=== PATIENT | male | born 1960 | race Caucasian/White ===

== ENCOUNTER 2023-08-17 09:29 | Inpatient (IN) | payer MEDICAID ==
[~2023-08-17] VITALS: Ht 170.2 cm; Wt 69.5 kg
[2023-08-17] VITALS (13 sets, daily range): BP systolic 91–131; BP diastolic 57–79; TEMP 97.8–98.8; O2SAT 93–100
[2023-08-17 10:29] LABS: CALCIUM, SERUM 9.2 mg/dL (8.5-10.1); CARBON DIOXIDE 32 mmol/L (21-32); CHLORIDE 99 mmol/L (98-107); CREATININE 1.7 mg/dL (0.6-1.3); GLUCOSE 127 mg/dL (74-106); POTASSIUM 5.9 mmol/L (3.5-5.1); SODIUM SERUM 135 mmol/L (136-145); UREA NITROGEN, BLOOD 57 mg/dL (7-18)
[2023-08-17 10:42] LABS: ALANINE AMINOTRANSFERASE 104 U/L (12-78); ALBUMIN 2.6 g/dL (3.4-5.0); ALKALINE PHOSPHATASE 162 U/L (46-116); ASPARTATE AMINOTRANSFERASE 127 U/L (15-37); BILIRUBIN,DIRECT 0.6 mg/dL (0.0-0.2); BILIRUBIN,TOTAL 0.8 mg/dL (0.2-1.0); INR 1.13 (0.91-1.10); NT-PRO BNP > 25000 pg/mL (0-125); PARTIAL THROMBOPLASTIN TIME 32.6 SEC (24.3-34.3); PROTHROMBIN TIME 11.9 SECS (9.2-11.1); TOTAL PROTEIN, SERUM 6.8 g/dL (6.4-8.2)
[2023-08-17] MEDS ORDERED: ALLA266C2 TP (10:43)
[2023-08-17] MEDS ORDERED: MULT-447 PO (10:43)
[2023-08-17] MEDS ORDERED: PANT40TA2 PO (10:43)
[2023-08-17] MEDS ORDERED: NUTR1PAC14 PO (10:43)
[2023-08-17] MEDS ORDERED: ACET-868 PO ×2 (10:43)
[2023-08-17] MEDS ORDERED: DOCU-141 PO (10:43)
[2023-08-17] MEDS ORDERED: CRAN425C6 PO (10:43)
[2023-08-17] MEDS ORDERED: MAGN400O6 PO (10:43)
[2023-08-17] MEDS ORDERED: ALBU2.5V38 IH (10:43)
[2023-08-17] MEDS ORDERED: ASCO-352 PO (10:43)
[2023-08-17] MEDS ORDERED: ZINC50TA69 PO (10:43)
[2023-08-17] MEDS ORDERED: ENOX40DI SQ (10:43)
[2023-08-17] MEDS ORDERED: IPRA12.9 IH (10:43)
[2023-08-17] MEDS ORDERED: ASPI-1169 PO (10:43)
[2023-08-17] MEDS ORDERED: ONDA4TAB5 PO (10:43)
[2023-08-17] MEDS ORDERED: POVI3780 TP (10:43)
[2023-08-17] MEDS ORDERED: AMIN30LI2 PO (10:43)
[2023-08-17] MEDS ORDERED: [UNRECOGNIZED DRUG - SUPPLY] TD (10:43)
[2023-08-17 10:50] LABS: LACTIC ACID 2.9 mmol/L (0.4-2.0)
[2023-08-17 10:59] LABS: ABG BASE EXCESS 2.2 mmol/L; ABG OXYGEN SATURATION 97.6 % (92.0-98.5); ABG PCO2 65.9 mmHg (35.0-45.0); ABG PH 7.282 (7.350-7.450); ABG PO2 105.2 mmHg (75.0-100.0); ABG TOTAL HEMOGLOBIN 12.1 G/dL (13.5-18.0); COHb 0.2 % (0.5-1.5); MetHb 0.3 % (0.0-1.5); O2Hb 97.1 % (94.0-97.0); SITE, ABG Right Radial
[2023-08-17] MEDS ORDERED: FUROSEMIDE 40 MG/4 ML VIAL IV ONE (11:00)
[2023-08-17] MEDS ORDERED: SODIUM POLYSTYRENE SULFONATE 15 G/60 ML BOTTLE RC ONE (11:00)
[2023-08-17] MEDS ORDERED: PROPOFOL 100 ML IV PRN (11:00)
[2023-08-17] MEDS ORDERED: CALCIUM CHLORIDE 1,000 MG/10 ML DISP.SYRIN IV ONE (11:00)
[2023-08-17] MEDS ORDERED: PROPOFOL 100 ML ONE ×2 (11:14→12:33)
[2023-08-17 11:17] LABS: BASOPHILS % (AUTO) 0.2 % (0.0-2.0); HEMATOCRIT 36 % (39-51); LYMPHOCYTES # (AUTO) 0.3 K/uL (0.8-4.8); LYMPHOCYTES % (AUTO) 2.5 % (20.0-44.0); MEAN CORPUSCULAR HEMOGLOBIN 28 PG (26.0-33.0); MEAN CORPUSCULAR HGB CONC 30 g/dl (31.0-36.0); MEAN CORPUSCULAR VOLUME 91 fL (80-96); MONOCYTES # (AUTO) 0.6 K/uL (0.1-1.30); MONOCYTES % (AUTO) 5.4 % (2.0-12.0); NEUTROPHILS # (AUTO) 10.6 K/uL (1.8-8.9); NEUTROPHILS % (AUTO) 91.9 % (43.0-81.0); PLATELET COUNT (AUTO) 371 K/uL (150-450); RED BLOOD CELL COUNT(AUTO) 4.01 MIL/uL (4.5-6.0); WHITE BLOOD COUNT (AUTO) 11.5 K/uL (4.3-11.0)
[2023-08-17] MEDS ORDERED: IPRATROPIUM NEB FS 0.5 MG/2.5 ML AMPUL.NEB NEB SCH (11:30)
[2023-08-17] MEDS ORDERED: ALBUTEROL FS 2.5 MG/3 ML VIAL.NEB CONTNEB ONE (11:30)
[2023-08-17] MEDS ORDERED: IV D5/ 0.9% NACL 1,000 ML IV PRN (11:30)
[2023-08-17] MEDS ORDERED: FUROSEMIDE 40 MG/4 ML VIAL ONE ×2 (11:42→14:57)
[2023-08-17] MEDS ORDERED: CALCIUM CHLORIDE 1,000 MG/10 ML DISP.SYRIN ONE (11:43)
[2023-08-17] MEDS ORDERED: SODIUM POLYSTYRENE SULFONATE 15 G/60 ML BOTTLE ONE (11:43)
[2023-08-17] MEDS ORDERED: DEXTROSE 50%-WATER 50 ML DISP.SYRIN IV PRN (12:30)
[2023-08-17] MEDS ORDERED: ONDANSETRON HCL/PF 4 MG/2 ML VIAL IVP PRN (12:30)
[2023-08-17] MEDS ORDERED: MORPHINE SULFATE INJ 2 MG/ML DISP.SYRIN IV PRN (12:30)
[2023-08-17] MEDS ORDERED: ALBUTEROL FS 2.5 MG/0.5 ML VIAL.NEB NEB PRN (12:30)
[2023-08-17] MEDS ORDERED: hydrALAZINE HCL IV 20 MG VIAL IV PRN (12:30)
[2023-08-17] MEDS ORDERED: ACETAMINOPHEN 325 MG TABLET PO PRN (12:30)
[2023-08-17] MEDS ORDERED: Z GUARD REMEDY 4 OZ OINT TP PRN (12:30)
[2023-08-17] MEDS ORDERED: IV NS 0.9% 250 ML IV ONE (12:32)
[2023-08-17] MEDS ORDERED: IOHEXOL-350 100 ML VIAL IV ONE (12:32)
[2023-08-17 12:35] LABS: ABG BASE EXCESS 0.1 mmol/L; ABG OXYGEN SATURATION 98.7 % (92.0-98.5); ABG PCO2 50.6 mmHg (35.0-45.0); ABG PH 7.337 (7.350-7.450); ABG PO2 137.2 mmHg (75.0-100.0); COHb 0.2 % (0.5-1.5); MetHb 0.3 % (0.0-1.5); O2Hb 98.2 % (94.0-97.0); SITE, ABG Right Radial; VENT MODE, BG AC 20 500 +8 100%
[2023-08-17] MEDS: methylPREDNISolone SOD SUCC 125 MG/2ML VIAL IV SCH ×2 (13:00→21:17)
[2023-08-17] MEDS: FUROSEMIDE 40 MG/4 ML VIAL IV SCH ×2 (13:00→17:52)
[2023-08-17] MEDS ORDERED: IPRATROPIUM NEB FS 0.5 MG/2.5 ML AMPUL.NEB NEB PRN (14:21)
[2023-08-17] MEDS ORDERED: ROCURONIUM BROMIDE 50 MG/5 ML IV ONE (14:21)
[2023-08-17] MEDS ORDERED: ETOMIDATE 2 MG/ML VIAL IV ONE (14:21)
[2023-08-17] MEDS ORDERED: ALBUTEROL FS 2.5 MG/0.5 ML VIAL.NEB ONE (14:32)
[2023-08-17] MEDS ORDERED: IPRATROPIUM NEB FS 0.5 MG/2.5 ML AMPUL.NEB ONE (14:32)
[2023-08-17] MEDS ORDERED: methylPREDNISolone SOD SUCC 125 MG/2ML VIAL ONE (14:57)
[2023-08-17] MEDS ORDERED: LEVOFLOXACIN 500 MG /D5W 100ML 100 ML IV SCH (15:00)
[2023-08-17] MEDS: PROPOFOL 100 ML IV PRN (17:21)
[2023-08-17] MEDS: BLOOD SUGAR DIAGNOSTIC 1 EACH STRIP IN SCH ×2 (18:30→22:04)
[2023-08-17] MEDS ORDERED: MEROPENEM 500 MG in IV NS 0.9% 50 ML IV SCH ×4 (19:30)
[2023-08-17] MEDS: ALBUTEROL FS 2.5 MG/0.5 ML VIAL.NEB NEB SCH (19:30)
[2023-08-17] MEDS: IPRATROPIUM NEB FS 0.5 MG/2.5 ML AMPUL.NEB NEB SCH (19:30)
[2023-08-17] MEDS ORDERED: VANCOMYCIN 1.25 GM in IV D5W 250 ML IV ONE (20:00)
[2023-08-17] MEDS ORDERED: VANCOMYCIN 1 GM /D5W 250 ML PB IV ONE (21:17)
[2023-08-17] MEDS ORDERED: MEROPENEM 500MG/NS 50 ML PB IV ONE (21:17)
[2023-08-17] MEDS: HEPARIN SODIUM, PORCINE 5000 UNITS/1 ML VIAL SQ SCH (21:17)
[2023-08-17] MEDS: IV NS 0.9% 250 ML IV PRN (21:44)
[2023-08-17 22:06] LABS: APPEARANCE,URINE CLEAR (CLEAR); BILIRUBIN,URINE NEGATIVE (NEGATIVE); BLOOD, URINE NEGATIVE Ery/uL (NEGATIVE); COLOR,URINE YELLOW (YELLOW); KETONES,URINE NEGATIVE (NEGATIVE); LEUKOCYTE ESTERASE ,URINE NEGATIVE (NEGATIVE); NITRITE, URINE NEGATIVE (NEGATIVE); PH,URINE 5.5 (5.0-8.0); PROTEIN,URINE NEGATIVE (NEGATIVE); UGLUCOSE NEGATIVE (NEGATIVE); UROBILINOGEN,URINE 0.2 EU/dL (0.2)
[2023-08-17] MEDS: INSULIN REGULAR, HUMAN 100 UNIT/ML 3 ML VIAL SQ PRN (22:06)
[2023-08-18] VITALS (37 sets, daily range): BP systolic 87–123; BP diastolic 54–80; TEMP 97.4–97.9; O2SAT 93–100
[2023-08-18] MEDS: ALBUTEROL FS 2.5 MG/0.5 ML VIAL.NEB NEB SCH ×4 (01:16→19:19)
[2023-08-18] MEDS: IPRATROPIUM NEB FS 0.5 MG/2.5 ML AMPUL.NEB NEB SCH ×4 (01:16→19:18)
[2023-08-18] MEDS: PROPOFOL 100 ML IV PRN ×4 (02:47→21:02)
[2023-08-18 04:49] LABS: HEMATOCRIT 33 % (39-51); HEMOGLOBIN 10.4 g/dL (13.5-17.5); LYMPHOCYTES # (AUTO) 0.2 K/uL (0.8-4.8); LYMPHOCYTES % (AUTO) 2.4 % (20.0-44.0); MEAN CORPUSCULAR HEMOGLOBIN 27 PG (26.0-33.0); MEAN CORPUSCULAR HGB CONC 32 g/dl (31.0-36.0); MEAN CORPUSCULAR VOLUME 85 fL (80-96); MONOCYTES # (AUTO) 0.4 K/uL (0.1-1.30); MONOCYTES % (AUTO) 4.3 % (2.0-12.0); NEUTROPHILS # (AUTO) 7.8 K/uL (1.8-8.9); NEUTROPHILS % (AUTO) 93.3 % (43.0-81.0); PLATELET COUNT (AUTO) 257 K/uL (150-450); RED BLOOD CELL COUNT(AUTO) 3.83 MIL/uL (4.5-6.0); RED CELL DISTRIBUTION WIDTH 20.1 % (11.5-15.0); WHITE BLOOD COUNT (AUTO) 8.4 K/uL (4.3-11.0)
[2023-08-18] MEDS: methylPREDNISolone SOD SUCC 125 MG/2ML VIAL IV SCH ×3 (05:15→21:01)
[2023-08-18 06:33] LABS: BILIRUBIN,TOTAL 1.2 mg/dL (0.2-1.0); CALCIUM, SERUM 9.2 mg/dL (8.5-10.1); CREATININE 1.1 mg/dL (0.6-1.3); MAGNESIUM 1.9 mg/dL (1.8-2.4); PHOSPHORUS 2.6 mg/dL (2.5-4.9); POTASSIUM 3.1 mmol/L (3.5-5.1); TOTAL PROTEIN, SERUM 5.5 g/dL (6.4-8.2)
[2023-08-18 08:44] LABS: ABG BASE EXCESS 15.2 mmol/L; ABG OXYGEN SATURATION 93.6 % (92.0-98.5); ABG PCO2 48.1 mmHg (35.0-45.0); ABG PH 7.534 (7.350-7.450); ABG PO2 68.4 mmHg (75.0-100.0); ABG TOTAL HEMOGLOBIN 11.6 G/dL (13.5-18.0); AaDO2 306.5 mmHg; COHb 0.1 % (0.5-1.5); MetHb 0.2 % (0.0-1.5); O2Hb 93.3 % (94.0-97.0); PEEP,BG 8 cm H2O; SITE, ABG Right Radial; VT, ABG 500 mL
[2023-08-18] MEDS ORDERED: DOCUSATE SODIUM 100 MG CAPSULE PO SCH (09:00)
[2023-08-18] MEDS ORDERED: PHARMACY TO CHANGE PO MEDS TO GT/NG XX PRN (09:00)
[2023-08-18] MEDS ORDERED: POLYETHYLENE GLYCOL 3350 17 GM POWD.PACK PO SCH (09:00)
[2023-08-18] MEDS: BLOOD SUGAR DIAGNOSTIC 1 EACH STRIP IN SCH ×4 (09:00→22:00)
[2023-08-18] MEDS ORDERED: ENOXAPARIN SODIUM 40 MG/0.4 ML DISP.SYRIN SQ SCH ×2 (09:00)
[2023-08-18] MEDS ORDERED: POTASSIUM CHLORIDE 20 MEQ POWDER PACKET GT ONE ×2 (09:00→13:00)
[2023-08-18] MEDS ORDERED: ASPIRIN 81 MG TAB.CHEW PO SCH (09:00)
[2023-08-18] MEDS: INSULIN REGULAR, HUMAN 100 UNIT/ML 3 ML VIAL SQ PRN ×4 (09:02→22:02)
[2023-08-18] MEDS: HEPARIN SODIUM, PORCINE 5000 UNITS/1 ML VIAL SQ SCH ×2 (09:06→21:03)
[2023-08-18] MEDS: MEROPENEM 1 G in IV NS 0.9% 100 ML IV SCH ×2 (09:09→21:01)
[2023-08-18] MEDS: DOCUSATE SODIUM LIQ 100 MG/10 ML UDC GT SCH (09:13)
[2023-08-18] MEDS ORDERED: ACETAMINOPHEN 650 MG/20.3 ML UDC GT PRN (10:00)
[2023-08-18] MEDS ORDERED: POTASSIUM CL. PREMIX PERIPHER. 50 ML IV SCH (10:00)
[2023-08-18] MEDS: IV D5/ 0.9% NACL 1,000 ML IV PRN (12:13)
[2023-08-18] MEDS: VANCOMYCIN 1.25 GM in IV D5W 250 ML IV SCH (22:00)
[2023-08-19] VITALS (27 sets, daily range): BP systolic 99–134; BP diastolic 59–102; TEMP 97–98.2; O2SAT 88–100
[2023-08-19] MEDS: IPRATROPIUM NEB FS 0.5 MG/2.5 ML AMPUL.NEB NEB SCH ×4 (02:18→20:01)
[2023-08-19] MEDS: ALBUTEROL FS 2.5 MG/0.5 ML VIAL.NEB NEB SCH ×4 (02:18→20:01)
[2023-08-19] MEDS: PROPOFOL 100 ML IV PRN ×2 (03:18→07:55)
[2023-08-19 05:03] LABS: BASOPHILS % (AUTO) 0.3 % (0.0-2.0); HEMATOCRIT 31 % (39-51); HEMOGLOBIN 10.3 g/dL (13.5-17.5); LYMPHOCYTES # (AUTO) 0.3 K/uL (0.8-4.8); MEAN CORPUSCULAR HEMOGLOBIN 28 PG (26.0-33.0); MEAN CORPUSCULAR HGB CONC 33 g/dl (31.0-36.0); MEAN CORPUSCULAR VOLUME 85 fL (80-96); MONOCYTES # (AUTO) 0.2 K/uL (0.1-1.30); MONOCYTES % (AUTO) 3.6 % (2.0-12.0); NEUTROPHILS # (AUTO) 6.2 K/uL (1.8-8.9); NEUTROPHILS % (AUTO) 92.1 % (43.0-81.0); PLATELET COUNT (AUTO) 239 K/uL (150-450); RED BLOOD CELL COUNT(AUTO) 3.69 MIL/uL (4.5-6.0); RED CELL DISTRIBUTION WIDTH 20.1 % (11.5-15.0); WHITE BLOOD COUNT (AUTO) 6.7 K/uL (4.3-11.0)
[2023-08-19 05:17] LABS: ALBUMIN 1.9 g/dL (3.4-5.0); CALCIUM, SERUM 9.1 mg/dL (8.5-10.1); CREATININE 0.8 mg/dL (0.6-1.3); POTASSIUM 3.6 mmol/L (3.5-5.1); TOTAL PROTEIN, SERUM 5.5 g/dL (6.4-8.2)
[2023-08-19] MEDS: methylPREDNISolone SOD SUCC 125 MG/2ML VIAL IV SCH ×3 (06:12→21:14)
[2023-08-19 07:40] LABS: ABG BASE EXCESS 11.4 mmol/L; ABG PCO2 44.2 mmHg (35.0-45.0); ABG PH 7.522 (7.350-7.450); ABG PO2 67.5 mmHg (75.0-100.0); ABG TOTAL HEMOGLOBIN 11.8 G/dL (13.5-18.0); AaDO2 166.9 mmHg; COHb 0.5 % (0.5-1.5); O2Hb 93.5 % (94.0-97.0); SITE, ABG Right Radial
[2023-08-19] MEDS: BLOOD SUGAR DIAGNOSTIC 1 EACH STRIP IN SCH ×4 (07:58→22:00)
[2023-08-19] MEDS: POLYETHYLENE GLYCOL 3350 17 GM POWD.PACK GT SCH (08:12)
[2023-08-19] MEDS: DOCUSATE SODIUM LIQ 100 MG/10 ML UDC GT SCH (08:12)
[2023-08-19] MEDS: MEROPENEM 1 G in IV NS 0.9% 100 ML IV SCH ×2 (08:12→21:12)
[2023-08-19] MEDS: ASPIRIN 81 MG TAB.CHEW GT SCH (08:12)
[2023-08-19] MEDS: HEPARIN SODIUM, PORCINE 5000 UNITS/1 ML VIAL SQ SCH ×2 (08:14→21:00)
[2023-08-19] MEDS ORDERED: GLUCERNA 1.2 1,000 ML BOTTLE NG PRN (10:00)
[2023-08-19] MEDS: IV D5/ 0.9% NACL 1,000 ML IV PRN (10:12)
[2023-08-19] MEDS ORDERED: DC PROPOFOL WHEN EXTUBATED XX PRN (11:05)
[2023-08-19] MEDS: INSULIN REGULAR, HUMAN 100 UNIT/ML 3 ML VIAL SQ PRN ×2 (12:14→22:00)
[2023-08-19 13:29] LABS: ABG BASE EXCESS 11.3 mmol/L; ABG OXYGEN SATURATION 96.4 % (92.0-98.5); ABG PCO2 49.4 mmHg (35.0-45.0); ABG PH 7.484 (7.350-7.450); ABG PO2 87.6 mmHg (75.0-100.0); ABG TOTAL HEMOGLOBIN 11.9 G/dL (13.5-18.0); AaDO2 140.8 mmHg; COHb 0.3 % (0.5-1.5); MetHb 0.2 % (0.0-1.5); O2Hb 95.9 % (94.0-97.0); SITE, ABG Right Radial
[2023-08-19] MEDS: VANCOMYCIN 1.25 GM in IV D5W 250 ML IV SCH (21:51)
[2023-08-20] VITALS (18 sets, daily range): BP systolic 111–129; BP diastolic 78–88; TEMP 97.5–97.8; O2SAT 92–100
[2023-08-20] MEDS: IPRATROPIUM NEB FS 0.5 MG/2.5 ML AMPUL.NEB NEB SCH ×3 (01:24→19:42)
[2023-08-20] MEDS: ALBUTEROL FS 2.5 MG/0.5 ML VIAL.NEB NEB SCH ×3 (01:24→19:42)
[2023-08-20] MEDS: IV D5/ 0.9% NACL 1,000 ML IV PRN (03:48)
[2023-08-20 04:46] LABS: BASOPHILS # (AUTO) 0.1 K/uL (0.0-0.2); BASOPHILS % (AUTO) 1.4 % (0.0-2.0); HEMATOCRIT 35 % (39-51); HEMOGLOBIN 10.9 g/dL (13.5-17.5); LYMPHOCYTES # (AUTO) 0.2 K/uL (0.8-4.8); LYMPHOCYTES % (AUTO) 2.4 % (20.0-44.0); MEAN CORPUSCULAR HEMOGLOBIN 27 PG (26.0-33.0); MEAN CORPUSCULAR HGB CONC 31 g/dl (31.0-36.0); MEAN CORPUSCULAR VOLUME 87 fL (80-96); MONOCYTES # (AUTO) 0.2 K/uL (0.1-1.30); MONOCYTES % (AUTO) 2.1 % (2.0-12.0); NEUTROPHILS # (AUTO) 7.7 K/uL (1.8-8.9); NEUTROPHILS % (AUTO) 94.1 % (43.0-81.0); PLATELET COUNT (AUTO) 242 K/uL (150-450); RED BLOOD CELL COUNT(AUTO) 4.03 MIL/uL (4.5-6.0); RED CELL DISTRIBUTION WIDTH 20.7 % (11.5-15.0); WHITE BLOOD COUNT (AUTO) 8.2 K/uL (4.3-11.0)
[2023-08-20 05:00] LABS: ALBUMIN 2.3 g/dL (3.4-5.0); BILIRUBIN,DIRECT 0.7 mg/dL (0.0-0.2); BILIRUBIN,TOTAL 0.9 mg/dL (0.2-1.0); CALCIUM, SERUM 9.5 mg/dL (8.5-10.1); CREATININE 0.8 mg/dL (0.6-1.3); POTASSIUM 4.1 mmol/L (3.5-5.1); TOTAL PROTEIN, SERUM 6.3 g/dL (6.4-8.2)
[2023-08-20] MEDS: methylPREDNISolone SOD SUCC 125 MG/2ML VIAL IV SCH ×3 (05:03→21:22)
[2023-08-20] MEDS ORDERED: LIDOCAINE 1%-EPI 1:100,000 20 ML VIAL TP ONE (06:00)
[2023-08-20] MEDS: BLOOD SUGAR DIAGNOSTIC 1 EACH STRIP IN SCH ×4 (07:48→21:28)
[2023-08-20] MEDS: DOCUSATE SODIUM LIQ 100 MG/10 ML UDC GT SCH (08:43)
[2023-08-20] MEDS: POLYETHYLENE GLYCOL 3350 17 GM POWD.PACK GT SCH (08:43)
[2023-08-20] MEDS: ASPIRIN 81 MG TAB.CHEW GT SCH (08:43)
[2023-08-20] MEDS: IV NS 0.9% 250 ML IV PRN (08:45)
[2023-08-20] MEDS: MEROPENEM 1 G in IV NS 0.9% 100 ML IV SCH ×2 (08:45→21:15)
[2023-08-20] MEDS: HEPARIN SODIUM, PORCINE 5000 UNITS/1 ML VIAL SQ SCH ×2 (08:47→21:00)
[2023-08-20] MEDS: INSULIN REGULAR, HUMAN 100 UNIT/ML 3 ML VIAL SQ PRN ×2 (11:52→17:53)
[2023-08-20] MEDS: THERAHONEY GEL 1.5 OZ TUBE TP SCH (21:00)
[2023-08-20] MEDS: DAKINS QUARTER STRENGTH (0.125%) 480 ML BOTTLE TOP SCH (21:00)
[2023-08-20] MEDS: VANCOMYCIN 1.25 GM in IV D5W 250 ML IV SCH (21:59)
[2023-08-21] VITALS (12 sets, daily range): BP systolic 130–138; BP diastolic 91–98; TEMP 97.2–97.7; O2SAT 95–99
[2023-08-21] MEDS: IPRATROPIUM NEB FS 0.5 MG/2.5 ML AMPUL.NEB NEB SCH ×4 (01:48→20:08)
[2023-08-21] MEDS: ALBUTEROL FS 2.5 MG/0.5 ML VIAL.NEB NEB SCH ×4 (01:48→20:07)
[2023-08-21] MEDS: methylPREDNISolone SOD SUCC 125 MG/2ML VIAL IV SCH (05:24)
[2023-08-21] MEDS: BLOOD SUGAR DIAGNOSTIC 1 EACH STRIP IN SCH ×4 (06:48→23:17)
[2023-08-21] MEDS: DOCUSATE SODIUM LIQ 100 MG/10 ML UDC GT SCH (09:00)
[2023-08-21] MEDS: POLYETHYLENE GLYCOL 3350 17 GM POWD.PACK GT SCH (09:00)
[2023-08-21] MEDS: DAKINS QUARTER STRENGTH (0.125%) 480 ML BOTTLE TOP SCH (09:00)
[2023-08-21] MEDS: ASPIRIN 81 MG TAB.CHEW GT SCH (09:00)
[2023-08-21] MEDS: THERAHONEY GEL 1.5 OZ TUBE TP SCH (09:00)
[2023-08-21] MEDS: HEPARIN SODIUM, PORCINE 5000 UNITS/1 ML VIAL SQ SCH ×2 (09:00→21:00)
[2023-08-21] MEDS: MEROPENEM 1 G in IV NS 0.9% 100 ML IV SCH ×2 (09:03→21:29)
[2023-08-21 10:13] LABS: CALCIUM, SERUM 9.6 mg/dL (8.5-10.1); CREATININE 0.8 mg/dL (0.6-1.3); POTASSIUM 4.5 mmol/L (3.5-5.1)
[2023-08-21] MEDS: methylPREDNISolone SOD SUCC 40 MG/ML VIAL IV SCH (16:45)
[2023-08-21] MEDS: VANCOMYCIN 1.25 GM in IV D5W 250 ML IV SCH (23:37)
[2023-08-21] MEDS: INSULIN REGULAR, HUMAN 100 UNIT/ML 3 ML VIAL SQ PRN (23:37)
[2023-08-22] VITALS (11 sets, daily range): BP systolic 108–136; BP diastolic 59–96; TEMP 97.5–98.3; O2SAT 95–99
[2023-08-22] MEDS: ALBUTEROL FS 2.5 MG/0.5 ML VIAL.NEB NEB SCH ×4 (01:20→20:18)
[2023-08-22] MEDS: IPRATROPIUM NEB FS 0.5 MG/2.5 ML AMPUL.NEB NEB SCH ×4 (01:20→20:18)
[2023-08-22] MEDS: INSULIN REGULAR, HUMAN 100 UNIT/ML 3 ML VIAL SQ PRN ×4 (07:36→21:59)
[2023-08-22] MEDS: BLOOD SUGAR DIAGNOSTIC 1 EACH STRIP IN SCH ×4 (07:36→21:58)
[2023-08-22] MEDS: ASPIRIN 81 MG TAB.CHEW GT SCH (08:21)
[2023-08-22] MEDS: DOCUSATE SODIUM LIQ 100 MG/10 ML UDC GT SCH (08:22)
[2023-08-22] MEDS: POLYETHYLENE GLYCOL 3350 17 GM POWD.PACK GT SCH (08:22)
[2023-08-22] MEDS: methylPREDNISolone SOD SUCC 40 MG/ML VIAL IV SCH ×2 (08:32→16:25)
[2023-08-22] MEDS: DAKINS QUARTER STRENGTH (0.125%) 480 ML BOTTLE TOP SCH (08:32)
[2023-08-22] MEDS: THERAHONEY GEL 1.5 OZ TUBE TP SCH (08:32)
[2023-08-22] MEDS: HEPARIN SODIUM, PORCINE 5000 UNITS/1 ML VIAL SQ SCH ×3 (08:33→21:22)
[2023-08-22] MEDS: MEROPENEM 1 G in IV NS 0.9% 100 ML IV SCH ×2 (08:33→20:28)
[2023-08-22 08:55] LABS: ABG BASE EXCESS 5.6 mmol/L; ABG OXYGEN SATURATION 95.3 % (92.0-98.5); ABG PCO2 54.8 mmHg (35.0-45.0); ABG PH 7.385 (7.350-7.450); ABG PO2 83.6 mmHg (75.0-100.0); ABG TOTAL HEMOGLOBIN 12.9 G/dL (13.5-18.0); AaDO2 138.6 mmHg; COHb 0.4 % (0.5-1.5); MetHb 0.3 % (0.0-1.5); O2Hb 94.6 % (94.0-97.0); SITE, ABG Right Radial; VENT MODE, BG NC 5LPM
[2023-08-22] MEDS: VANCOMYCIN 1.25 GM in IV D5W 250 ML IV SCH (22:00)
[2023-08-23] VITALS (7 sets, daily range): BP systolic 126–137; BP diastolic 93–110; TEMP 97.5–98.2; O2SAT 89–96
[2023-08-23] MEDS: IPRATROPIUM NEB FS 0.5 MG/2.5 ML AMPUL.NEB NEB SCH ×4 (01:30→19:46)
[2023-08-23] MEDS: ALBUTEROL FS 2.5 MG/0.5 ML VIAL.NEB NEB SCH ×4 (01:30→19:47)
[2023-08-23] MEDS: MEROPENEM 1 G in IV NS 0.9% 100 ML IV SCH ×3 (05:09→20:56)
[2023-08-23] MEDS: BLOOD SUGAR DIAGNOSTIC 1 EACH STRIP IN SCH ×4 (06:01→22:00)
[2023-08-23] MEDS: INSULIN REGULAR, HUMAN 100 UNIT/ML 3 ML VIAL SQ PRN (06:01)
[2023-08-23 07:11] LABS: BASOPHILS % (AUTO) 0.1 % (0.0-2.0); HEMATOCRIT 37 % (39-51); HEMOGLOBIN 11.4 g/dL (13.5-17.5); LYMPHOCYTES # (AUTO) 0.3 K/uL (0.8-4.8); LYMPHOCYTES % (AUTO) 2.9 % (20.0-44.0); MEAN CORPUSCULAR HEMOGLOBIN 27 PG (26.0-33.0); MEAN CORPUSCULAR HGB CONC 31 g/dl (31.0-36.0); MEAN CORPUSCULAR VOLUME 87 fL (80-96); MONOCYTES # (AUTO) 0.4 K/uL (0.1-1.30); MONOCYTES % (AUTO) 3.8 % (2.0-12.0); NEUTROPHILS # (AUTO) 10.9 K/uL (1.8-8.9); NEUTROPHILS % (AUTO) 93.2 % (43.0-81.0); PLATELET COUNT (AUTO) 201 K/uL (150-450); RED CELL DISTRIBUTION WIDTH 20.5 % (11.5-15.0); WHITE BLOOD COUNT (AUTO) 11.7 K/uL (4.3-11.0)
[2023-08-23 07:42] LABS: ALBUMIN 2.4 g/dL (3.4-5.0); BILIRUBIN,TOTAL 1.1 mg/dL (0.2-1.0); CALCIUM, SERUM 9.4 mg/dL (8.5-10.1); CREATININE 0.8 mg/dL (0.6-1.3); POTASSIUM 4.7 mmol/L (3.5-5.1); TOTAL PROTEIN, SERUM 6.2 g/dL (6.4-8.2)
[2023-08-23] MEDS ORDERED: PHARMACY TO CHANGE GT/NG MEDS TO PO XX PRN (10:30)
[2023-08-23] MEDS ORDERED: ASPIRIN 81 MG TAB.CHEW PO SCH (10:32)
[2023-08-23] MEDS ORDERED: POLYETHYLENE GLYCOL 3350 17 GM POWD.PACK PO SCH (10:33)
[2023-08-23] MEDS ORDERED: DOCUSATE SODIUM 100 MG CAPSULE PO SCH (10:33)
[2023-08-23] MEDS: methylPREDNISolone SOD SUCC 40 MG/ML VIAL IV SCH ×2 (10:35→17:01)
[2023-08-23] MEDS: HEPARIN SODIUM, PORCINE 5000 UNITS/1 ML VIAL SQ SCH ×2 (10:38→20:58)
[2023-08-23] MEDS ORDERED: ACETAMINOPHEN 325 MG TABLET PO PRN (11:00)
[2023-08-23] MEDS: DAKINS QUARTER STRENGTH (0.125%) 480 ML BOTTLE TOP SCH (11:05)
[2023-08-23] MEDS: THERAHONEY GEL 1.5 OZ TUBE TP SCH (11:05)
[2023-08-23] MEDS ORDERED: VANCOMYCIN 1 GM in IV D5W 250ml IV SCH (22:00)
[2023-08-24 00:08] VITALS: BP 133/100; TEMP 97.8; O2SAT 95
[2023-08-24] MEDS: ALBUTEROL FS 2.5 MG/0.5 ML VIAL.NEB NEB SCH ×3 (01:30→13:23)
[2023-08-24] MEDS: IPRATROPIUM NEB FS 0.5 MG/2.5 ML AMPUL.NEB NEB SCH ×3 (01:30→13:23)
[2023-08-24 01:55] VITALS: O2SAT 96
[2023-08-24] MEDS: MEROPENEM 1 G in IV NS 0.9% 100 ML IV SCH ×2 (05:00→12:13)
[2023-08-24] MEDS: BLOOD SUGAR DIAGNOSTIC 1 EACH STRIP IN SCH ×2 (06:42→12:09)
[2023-08-24] MEDS: INSULIN REGULAR, HUMAN 100 UNIT/ML 3 ML VIAL SQ PRN (06:43)
[2023-08-24 07:00] VITALS: BP 124/90; TEMP 97.5; O2SAT 94
[2023-08-24 07:33] VITALS: O2SAT 96
[2023-08-24 07:49] VITALS: O2SAT 96
[2023-08-24] MEDS: HEPARIN SODIUM, PORCINE 5000 UNITS/1 ML VIAL SQ SCH ×2 (09:00→09:18)
[2023-08-24] MEDS: methylPREDNISolone SOD SUCC 40 MG/ML VIAL IV SCH (09:17)
[2023-08-24] MEDS: DAKINS QUARTER STRENGTH (0.125%) 480 ML BOTTLE TOP SCH (09:18)
[2023-08-24] MEDS: THERAHONEY GEL 1.5 OZ TUBE TP SCH (09:18)
[2023-08-24] MEDS ORDERED: MERO1PIG IV (09:47)
[2023-08-24 11:30] VITALS: BP 129/98; TEMP 98.2; O2SAT 99
== END 2023-08-24 15:00 | DRG 720 ==
LOC: ER 09:32 → EDBD 14:14 → ICU 14:14 → TELE 08-20 10:02
PROVIDERS: ADMIT Internal Medicine; ATTEND Internal Medicine
PROC: 5A1945Z Respiratory Ventilation, 24-96 Consecutive Hours (ICD-10-PCS; principal; 2023-08-17)
PROC: 0BH17EZ Insertion of Endotracheal Airway into Trachea, Via Natural or Artificial Opening (ICD-10-PCS; 2023-08-17)
PROC: 02HV33Z Insertion of Infusion Device into Superior Vena Cava, Percutaneous Approach (ICD-10-PCS; 2023-08-17)
PROC: B548ZZA Ultrasonography of Superior Vena Cava, Guidance (ICD-10-PCS; 2023-08-17)
DX: A41.9 Sepsis, unspecified organism (principal); J96.21 Acute and chronic respiratory failure with hypoxia; N17.0 Acute kidney failure with tubular necrosis; J69.0 Pneumonitis due to inhalation of food and vomit; G92.8 Other toxic encephalopathy; I50.43 Acute on chronic combined systolic (congestive) and diastolic (congestive) heart failure; E43 Unspecified severe protein-calorie malnutrition; L89.224 Pressure ulcer of left hip, stage 4; E87.20 Acidosis, unspecified; L89.626 Pressure-induced deep tissue damage of left heel; L89.156 Pressure-induced deep tissue damage of sacral region; M86.8X8 Other osteomyelitis, other site; E88.09 Other disorders of plasma-protein metabolism, not elsewhere classified; I42.9 Cardiomyopathy, unspecified; D64.9 Anemia, unspecified; E11.9 Type 2 diabetes mellitus without complications; J44.1 Chronic obstructive pulmonary disease with (acute) exacerbation; J96.22 Acute and chronic respiratory failure with hypercapnia; E87.5 Hyperkalemia; Z59.00 Homelessness unspecified; Z79.82 Long term (current) use of aspirin; Z91.199 Patient's noncompliance with other medical treatment and regimen due to unspecified reason; R74.01 Elevation of levels of liver transaminase levels; Z73.6 Limitation of activities due to disability; F19.10 Other psychoactive substance abuse, uncomplicated; Z68.24 Body mass index [BMI] 24.0-24.9, adult; I13.0 Hypertensive heart and chronic kidney disease with heart failure and stage 1 through stage 4 chronic kidney disease, or unspecified chronic kidney disease; E11.69 Type 2 diabetes mellitus with other specified complication; L98.8 Other specified disorders of the skin and subcutaneous tissue; S71.101A Unspecified open wound, right thigh, initial encounter; X58.XXXA Exposure to other specified factors, initial encounter; Y93.9 Activity, unspecified; Y92.129 Unspecified place in nursing home as the place of occurrence of the external cause; L89.890 Pressure ulcer of other site, unstageable; L89.616 Pressure-induced deep tissue damage of right heel; L89.520 Pressure ulcer of left ankle, unstageable; Z20.822 Contact with and (suspected) exposure to COVID-19
CPT/HCPCS: 31720; 36415; 36600; 70450-TC; 71045-TC; 80048-TC; 80053-TC; 80076-TC; 80202-TC; 82803-TC; 82962-TC; 83605-TC; 83735-TC; 83880; 84100-TC; 84478-TC; 84484-TC; 85025-TC; 85730-TC; 87040-TC; 87086-TC; 92526; 92611-TC; 94002-TC; 94003-TC; 94799-TC; 97110-TC; 97116-TC; 97530-TC; 99082-TC; A4217; A4223; A6403; C9803; G0378; J1644; J1815; J1940; J1956; J2185; J2920; J2930; J3370; J3490; J7030; J7042; J7050; J7060; Q9967